=== PATIENT | male | born 1990 | race Caucasian/White ===

== ENCOUNTER 2019-06-27 18:52 | Emergency (ER) | payer OTHER, SELFPAY ==
[2019-06-27 18:53] VITALS: BP 145/91; PULSE 79; RESP 16; TEMP 36.4; O2SAT 100; BMI 24.7
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
[2019-06-27] MEDS: Diphth,Pertuss(Acell),Tet Vac 0.5 ML Vial IM (19:55)
[2019-06-27 20:11] VITALS: BP 137/88; PULSE 70; RESP 16; O2SAT 98
== END 2019-06-27 20:18 | disposition home or self-care (01) ==
LOC: ED 19:45
PROVIDERS: Emergency Provider Emergency Medicine
DX: S81.812A Laceration without foreign body, left lower leg, initial encounter (principal); Z23 Encounter for immunization; W26.9XXA Contact with unspecified sharp object(s), initial encounter; Y93.55 Activity, bike riding; Y92.89 Other specified places as the place of occurrence of the external cause; Y99.8 Other external cause status
CPT/HCPCS: 90471; 90715; 99283

== ENCOUNTER 2019-07-27 11:00 | Outpatient (RCR) | payer OTHER, SELFPAY ==
[2019-07-06 09:43] VITALS: BP 121/76; PULSE 76; RESP 18; TEMP 36.9; BMI 24.7
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
[2019-07-13 11:05] VITALS: BP 155/57; PULSE 80; RESP 16; TEMP 37; BMI 24.7
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
[2019-07-20 11:07] VITALS: BP 126/73; PULSE 77; RESP 16; TEMP 36.8; BMI 24.7
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
[2019-07-27 11:10] VITALS: BP 114/72; PULSE 87; RESP 16; TEMP 37.3; BMI 24.7
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
== END 2019-07-28 23:59 ==
LOC: WC 11:00
PROVIDERS: Referring Provider Nurse Practitioner; Visit Provider Nurse Practitioner
DX: S81.832A Puncture wound without foreign body, left lower leg, initial encounter (principal); V86.99XA Unspecified occupant of other special all-terrain or other off-road motor vehicle injured in nontraffic accident, initial encounter; L08.9 Local infection of the skin and subcutaneous tissue, unspecified
CPT/HCPCS: 11042; 87070; 87075; 87077; 87186; 87205; 99213; G0463

== ENCOUNTER 2019-08-17 11:15 | Outpatient (RCR) | payer OTHER, SELFPAY ==
[2019-07-29 01:07] VITALS: BP 114/72; PULSE 87; RESP 16; TEMP 37.3
[2019-08-03 11:51] VITALS: BP 133/75; PULSE 82; RESP 16; TEMP 37; BMI 24.7
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
[2019-08-10 11:28] VITALS: BP 124/74; PULSE 88; RESP 16; TEMP 37.2; BMI 24.7
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
[2019-08-17 11:39] VITALS: BP 120/86; PULSE 77; RESP 18; TEMP 36.6; BMI 24.7
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
== END 2019-08-27 23:59 ==
LOC: WC 11:15
PROVIDERS: Referring Provider Nurse Practitioner; Visit Provider Nurse Practitioner
DX: S81.832A Puncture wound without foreign body, left lower leg, initial encounter (principal); V86.99XA Unspecified occupant of other special all-terrain or other off-road motor vehicle injured in nontraffic accident, initial encounter; L08.9 Local infection of the skin and subcutaneous tissue, unspecified
CPT/HCPCS: 11042; 87070; 87075; 87077; 87186; 87205

== ENCOUNTER 2019-09-07 11:15 | Outpatient (RCR) | payer OTHER, SELFPAY ==
[2019-08-28 00:59] VITALS: BP 120/86; PULSE 77; RESP 18; TEMP 36.6
[2019-08-31 11:06] VITALS: BP 131/73; PULSE 92; RESP 16; BMI 24.7
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
[2019-09-07 11:23] VITALS: BP 120/66; PULSE 83; RESP 18; TEMP 37; BMI 24.7
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
== END 2019-09-27 23:59 ==
LOC: WC 11:15
PROVIDERS: Referring Provider Nurse Practitioner; Visit Provider Nurse Practitioner
DX: S81.832A Puncture wound without foreign body, left lower leg, initial encounter (principal); V86.99XA Unspecified occupant of other special all-terrain or other off-road motor vehicle injured in nontraffic accident, initial encounter; L08.9 Local infection of the skin and subcutaneous tissue, unspecified
CPT/HCPCS: 11042; 99213; G0463